=== PATIENT | female | born 1985 | race Caucasian/White ===

== ENCOUNTER 2016-10-10 20:59 | Emergency (ER) | payer OTHER ==
[~2016-10-10] VITALS: Ht 162.6 cm; Wt 102.0 kg
[2016-10-10 21:07] VITALS: Ht 162.6 cm; Wt 102.0 kg
[2016-10-10] MEDS ORDERED: ULT50 PO (22:29)
[2016-10-10] MEDS ORDERED: GEMF600T60 PO (22:29)
--- NOTE | 2016-10-10 22:30 | ERD ---
ER Documentation Chief Complaint Date/Time DATE: 10/10/16 TIME: 22:27 Chief Complaint chest pain since 1 hour ago HPI 31-year-old female presents here in emergency department for complaints of chest pain started one hour prior to arrival. Patient was at home, was watching TV, started to have chest pain, family hands, episode of shortness of breath. This lasted for an hour, now it has improved. Patient described the chest pain as sharp pain, especially scale, intermittent. At this time, patient denies any pain. Patient denies any dizziness. She can recently was started on dyslipidemia medications. Patient currently taking gemfibrozil. Patient does not have any cough. Patient does not have any fever or chills. ROS All systems reviewed and are negative except as per history of present illness. Medications Home Meds Reported Medications Tramadol HCl (Tramadol HCl) Unknown Strength Tablet, PO Q8H, #120 TAB 10/10/16 Gemfibrozil* (Gemfibrozil*) Unknown Strength Tablet, PO BID, TAB 10/10/16 Allergies Allergies: Coded Allergies: No Known Allergy (Unverified , 10/10/16) PMhx/Soc Hx Cardiac Disorders: Yes (HIGH CHOLESTEROL) Hx Alcohol Use: No Hx Substance Use: No Hx Tobacco Use: No FmHx Family History: No coronary disease, No diabetes, No other Physical Exam Vitals Vital Signs Date Time Temp Pulse Resp B/P Pulse Ox O2 Delivery O2 Flow Rate FiO2 10/10/16 21:07 97.8 94 20 180/94 100 Physical Exam GENERAL: The patient is well developed and appropriate for usual state of health, in no apparent distress. CHEST: Clear to auscultation bilaterally. There are no rales, wheezes or rhonchi. HEART: Regular rate and rhythm. No murmurs, clicks, rubs or gallops. No S3 or S4. ABDOMEN: Soft, nontender and nondistended. Good bowel sounds. No rebound or guarding. No gross peritonitis. No gross organomegaly or masses. No Banks sign or McBurney point tenderness. BACK: No midline or flank tenderness. EXTREMITIES: Equal pulses bilaterally. There is no peripheral clubbing, cyanosis or edema. No focal swelling or erythema. Full range of motion. Grossly neurovascularly intact. NEURO: Alert and oriented. Cranial nerves 2-12 intact. Motor strength in all 4 extremities with 5/5 strength. Sensation grossly intact. Normal speech and gait. SKIN: There is no apparent rash or petechia. The skin is warm and dry. HEMATOLOGIC AND LYMPHATIC: There is no evidence of excessive bruising or lymphedema. No gross cervical, axillary, or inguinal lymphadenopathy. Result Diagram: 10/10/16222910/10/162229 Results 24 hrs Laboratory Tests Test 10/10/16 22:30 Alanine Aminotransferase (ALT/SGPT) 28IU/L Albumin 4.5g/dl Albumin/Globulin Ratio 1.07 Alkaline Phosphatase 76IU/L Anion Gap 22 Aspartate Amino Transf (AST/SGOT) 29IU/L Basophils # 0.010^3/ul Basophils % 0.2% Blood Urea Nitrogen 18mg/dl Calcium Level 9.5mg/dl Carbon Dioxide Level 26mmol/L Chloride Level 101mmol/L Creatine Kinase 269IU/L Creatine Kinase Index 0.6 Creatinine 0.76mg/dl Creatinine Kinase MB (Mass) 1.57ng/ml Direct Bilirubin 0.00mg/dl Eosinophils # 0.110^3/ul Eosinophils % 0.8% Globulin 4.20g/dl Glucose Level 112mg/dl Hematocrit 40.1% Hemoglobin 13.6g/dl Indirect Bilirubin 0.1mg/dl Lymphocytes # 2.910^3/ul Lymphocytes % 22.2% Mean Corpuscular Hemoglobin 29.3pg Mean Corpuscular Hemoglobin Concent 33.9g/dl Mean Corpuscular Volume 86.3fl Mean Platelet Volume 7.4fl Monocytes # 0.610^3/ul Monocytes % 4.5% Neutrophils # 9.510^3/ul Neutrophils % 72.3% Nucleated Red Blood Cells # 0.010^3/ul Nucleated Red Blood Cells % 0.0/100WBC Platelet Count 36188^3/UL Potassium Level 4.3mmol/L Red Blood Count 4.6510^6/ul Red Cell Distribution Width 12.7% Sodium Level 145mmol/L Total Bilirubin 0.1mg/dl Total Protein 8.7g/dl Troponin I < 0.010ng/ml White Blood Count 13.210^3/ul EKG was done, read by me and is normal sinus rhythm at a rate of 89, normal axis , there is no ST changes or changes in the EKG that indicates any cardiac emergencies at this time. Patient's EKG was also reviewed by Dr. Mcdaniel. Impression: no acute findings on EKG PROCEDURE: CHEST - 1 VIEW CLINICAL INDICATION: 31-year-old female with chest pain. TECHNIQUE: A single frontal AP upright view of the chest was performed portably. The images were reviewed on a PACS workstation. COMPARISON: None. FINDINGS: The cardiomediastinal silhouette has a normal appearance. There is no evidence for an infiltrate. There is no evidence for congestive heart failure. There is no evidence for pneumothorax. The osseous structures are intact. IMPRESSION: No evidence for active cardiopulmonary disease. .Gennaro Jean MD, MD Date Time Electronically viewed and signed by .Gennaro Jean MD, on 10/10/2016 23:07 .M/ Procedures/MDM Medical Decision Making: Patient's pain is nonspecific at this time, possible musculoskeletal pain. It can be also anxiety related. Troponin is negative, CK- MB is only mildly elevated. There is low suspicion for cardiopulmonary emergencies at this time. Patient has low risk factors. EKG is normal, there is no changes in the EKG that indicates cardiac emergencies. Chest X-ray does not show cardiopulmonary emergencies at this time. There is low suspicion for aortic aneurysm, myocardial infarction, pneumothorax, pleural effusion, pulmonary embolism, or any other cardiopulmonary emergencies at this time. Cardiac markers are normal. Patient was advised to follow-up with primary care doctor in 1-2 days for reevaluation of symptoms. Patient was advised to return to emergency department for any worsening symptoms Departure Diagnosis: Primary Impression: Atypical chest pain Condition: Stable Patient Instructions: Chest Pain, Uncertain Cause JOSE GÓMEZ NP Oct 10, 2016 22:30
[2016-10-10 22:35] LABS: BASOPHILS % 0.2 % (0.0-2.0); EOSINOPHILS # 0.1 10^3/ul (0.0-0.5); EOSINOPHILS % 0.8 % (0.0-7.0); HEMATOCRIT 40.1 % (37.0-47.0); HEMOGLOBIN 13.6 g/dl (12.0-16.0); LYMPHOCYTES # 2.9 10^3/ul (0.8-2.9); LYMPHOCYTES % 22.2 % (15.0-51.0); MEAN CORPUSCULAR HEMOGLOBIN 29.3 pg (29.0-33.0); MEAN CORPUSCULAR HGB CONC 33.9 g/dl (32.0-37.0); MEAN CORPUSCULAR VOLUME 86.3 fl (82.0-101.0); MEAN PLATELET VOLUME 7.4 fl (7.4-10.4); MONOCYTE # 0.6 10^3/ul (0.3-0.9); MONOCYTES % 4.5 % (0.0-11.0); NEUTROPHIL # 9.5 10^3/ul (1.6-7.5); NEUTROPHILS % 72.3 % (39.0-77.0); PLATELET COUNT 308 10^3/UL (140-440); RED BLOOD COUNT 4.65 10^6/ul (4.20-5.40); RED CELL DISTRIBUTION WIDTH 12.7 % (11.5-14.5); UNCORRECTED WBC 13.2 10^3/ul (4.8-10.8); WHITE BLOOD COUNT 13.2 10^3/ul (4.8-10.8)
[2016-10-10 22:41] LABS: CONDITION 1
[2016-10-10 22:44] LABS: ALBUMIN 4.5 g/dl (3.3-4.9)
[2016-10-10 22:45] LABS: CHLORIDE 101 mmol/L (97-110); POTASSIUM 4.3 mmol/L (3.5-5.1); SODIUM 145 mmol/L (135-144)
[2016-10-10 22:47] LABS: ALBUMIN/GLOBULIN RATIO 1.07; ALKALINE PHOSPHATASE 76 IU/L (42-121); ANION GAP 22 (8-16); ASPARTATE AMINO TRANSFERASE 29 IU/L (15-46); BILIRUBIN,INDIRECT 0.1 mg/dl (0-1.1); BILIRUBIN,TOTAL 0.1 mg/dl (0.2-1.3); BLOOD UREA NITROGEN 18 mg/dl (7-20); CARBON DIOXIDE 26 mmol/L (21-31); CREATININE 0.76 mg/dl (0.44-1.00); TOTAL PROTEIN 8.7 g/dl (6.1-8.1)
[2016-10-10 22:48] LABS: ALANINE AMINOTRANSFERASE 28 IU/L (13-69); CALCIUM 9.5 mg/dl (8.4-10.2); CREATINE KINASE 269 IU/L (23-200); GLUCOSE 112 mg/dl (70-220)
[2016-10-10 22:58] LABS: CK-MB 1.57 ng/ml (0.0-2.4)
--- NOTE | 2016-10-10 23:07 | RADRPT ---
PROCEDURE: CHEST - 1 VIEW CLINICAL INDICATION: 31-year-old female with chest pain. TECHNIQUE: A single frontal AP upright view of the chest was performed portably. The images were reviewed on a PACS workstation. COMPARISON: None. FINDINGS: The cardiomediastinal silhouette has a normal appearance. There is no evidence for an infiltrate. There is no evidence for congestive heart failure. There is no evidence for pneumothorax. The osseou s structures are intact. IMPRESSION: No evidence for active cardiopulmonary disease. .Gennaro Jean MD, MD Date Time Electronically viewed and signed by .Gennaro Jean MD, on 10/10/2016 23:07 .Carol/
[2016-10-10 23:17] LABS: TROPONIN-I < 0.010 ng/ml (0.00-0.12)
[2016-10-10 23:53] VITALS: BP 162/84; PULSE 78; RESP 18
== END 2016-10-10 23:53 | disposition home or self-care (01) ==
LOC: E/R 20:59 → FTE 23:53
DX: R07.89 Other chest pain (principal)
CPT/HCPCS: 36415; 71010; 80053; 82550; 82553; 84484; 85025; 93005; Z7502